=== PATIENT | male | born 2000 | race Caucasian/White ===

== ENCOUNTER 2024-01-09 18:43 | Emergency (ER) | payer BC ==
[2024-01-09 18:54] VITALS: BP 121/55; PULSE 103; RESP 18; TEMP 99.5; BMI 23.7
[2024-01-09] MEDS ORDERED: AZITHROMYCIN 500 MG TABLET ONE (19:33)
[2024-01-09] MEDS: AZITHROMYCIN 500 MG TABLET PO ONE (19:33)
== END 2024-01-09 19:39 | disposition home or self-care (01) ==
LOC: FER 18:43
DX: J02.9 Acute pharyngitis, unspecified (principal); R50.9 Fever, unspecified; Z20.822 Contact with and (suspected) exposure to COVID-19
CPT/HCPCS: 0241U-QW; 87651; 99283-25

== ENCOUNTER 2024-01-12 21:51 | Emergency (ER) | payer BC, OTHER ==
[2024-01-12 22:03] VITALS: BP 135/73; PULSE 79; RESP 18; TEMP 99.1; BMI 23.7
[2024-01-12] MEDS ORDERED: DEXAMETHASONE SOD PHOSPHATE 10 MG/1 ML VIAL ONE (22:43)
[2024-01-12] MEDS ORDERED: AMOX TR/POT CLAV 875MG/125MG TABLETS (FP) ONE (22:43)
[2024-01-12] MEDS: DEXAMETHASONE SOD PHOSPHATE 10 MG/1 ML VIAL IM ONE (22:50)
[2024-01-12] MEDS: AMOX TR/POT CLAV 875MG/125MG TABLETS (FP) PO ONE (22:50)
== END 2024-01-12 22:58 | disposition home or self-care (01) ==
LOC: FER 21:51
PROC: 3E023GC Introduction of Other Therapeutic Substance into Muscle, Percutaneous Approach (ICD-10-PCS; principal; 2024-01-12)
DX: J02.9 Acute pharyngitis, unspecified (principal); H66.91 Otitis media, unspecified, right ear; H92.01 Otalgia, right ear
CPT/HCPCS: 99284-25; J1100